=== PATIENT | female | born 2000 | race Caucasian/White ===

== ENCOUNTER 2019-02-20 23:28 | Emergency (ER) | payer OTHER ==
[2019-02-21] MEDS ORDERED: CEPHALEXIN 500 MG CAPSULE PO ONE (01:04)
[2019-02-21] MEDS ORDERED: DIPHENHYDRAMINE HCL 50 MG CAPSULE PO ONE (01:04)
--- NOTE | 2019-02-21 01:04 | ER Document Report ---
HPI - HPI Time Seen by Provider: 02/21/19 00:26 Pain Level: 1 Context: Patient is an otherwise healthy 18-year-old female who presents the emergency department with multiple insect bites on her lower extremities. Patient states that she noticed she had them about 2 days ago. She does have some erythema noted to her right lateral posterior thigh. She has not taken any Benadryl to help with the itchiness. Denies any past medical history. Does not take any medications. - ROS Notes: REVIEW OF SYSTEMS: CONSTITUTIONAL : Denies recent illness. Denies recent unintentional weight loss. Denies fever, chills, or sweats. EENT: Denies eye, ear, throat, or mouth pain, discharge, or symptoms. Denies nasal or sinus congestion. CARDIOVASCULAR: Denies chest pain. RESPIRATORY: Denies shortness of breath, cough, congestion, difficulty breathing, or wheezing. GASTROINTESTINAL: Denies nausea, vomiting, and diarrhea. Denies abdominal pain. Denies constipation. GENITOURINARY: Denies difficulty urinating, burning, blood in urine, urgency or frequency. MUSCULOSKELETAL: Denies neck and back pain. Denies joint pain or swelling. SKIN: See HPI HEMATOLOGIC : Denies easy bruising or bleeding. LYMPHATIC: Denies swollen, painful, enlarged glands. NEUROLOGICAL: Denies no numbness or tingling denies weakness. Denies headache. Denies altered mental status. Denies alteration in speech. PSYCHIATRIC: Denies stress, anxiety, alteration in sleep patterns, or depression. All other systems reviewed and negative. - REPRODUCTIVE Reproductive: DENIES: : Past Medical History - Social History Smoking Status: Never Smoker Family History: Reviewed & Not Pertinent Vertical Provider Document - CONSTITUTIONAL Notes: PHYSICAL EXAMINATION: GENERAL: Appears well, healthy, well-nourished, no acute distress. HEAD: Normocephalic, atraumatic. EYES: PERRL, conjunctiva normal, all extraocular movements intact, sclera nonicteric ENT: Moist mucous membranes. NECK: Supple, no noticeable swelling, redness, rash. Normal range of motion. LUNGS: Equal breath sounds bilaterally and clear to auscultation. No wheezes rales or rhonchi. CARDIOVASCULAR: S1-S2, regular rate, regular rhythm. Radial pulses 2+, normal. ABDOMEN: Normoactive bowel sounds. Soft, nontender, no guarding, no rebound tenderness, and no masses palpated. EXTREMITIES: Normal strength and range of motion, no pitting or edema. No cyano sis. NEUROLOGICAL: Moves all extremities upon command. Strength 5/5 in all extremities. PSYCH: Normal mood, normal affect. SKIN: Warm, dry. Edema and erythema noted to right posterior lateral thigh consistent with cellulitis. Multiple insect bites noted to bilateral lower legs. Normal skin turgor. - INFECTION CONTROL TRAVEL OUTSIDE OF THE [place] IN LAST 30 DAYS: No Course - Re-evaluation Re-evalutation: 02/21/19 Patient presents with symptoms most consistent with an acute cellulitis. Vitals within normal limits. Patient does not meet sepsis criteria is overall very well in appearance. Exam and history are not consistent with DVT. Patient will be started on coverage for both staph and strep. At this time will discharge with return precautions and follow-up recommendations. Verbal discharge instructions given a the bedside and opportunity for questions given. Medication warnings reviewed. Patient is in agreement with this plan and has verbalized understanding of return precautions and the need for primary care follow-up in the next 24-72 hours. Discharge - Discharge Clinical Impression: Cellulitis Qualifiers: Site of cellulitis: extremity Site of cellulitis of extremity: lower extremity Laterality: unspecified laterality Qualified Code(s): L03.119 - Cellulitis of unspecified part of limb Insect bites Qualifiers: Encounter type: initial encounter Site of insect bite: unspecified site Qualified Code(s): W57.XXXA - Bitten or stung by nonvenomous insect and other nonvenomous arthropods, initial encounter Condition: Stable Disposition: HOME, SELF-CARE Additional Instructions: The rash is likely due to infection of your skin from bug bites. You need to take the antibiotics as prescribed. Do not stop even if the rash goes away until you have completed all the antibiotics. The area of redness was traced out here in the emergency department with a marking pen. You need to return to emergency department if the redness spreads outside of this area by more than 2 cm in any direction. You should also return if you develop fevers with temperature greater than 101, persistent vomiting, worsening pain, or have any other symptoms that are concerning to you. Please take Benadryl 25-50 mg every 4-6 hours for itchiness. Follow-up with your primary care provider in regards to this visit. Prescriptions: Cephalexin Monohydrate [Keflex 500 mg Capsule] 500 mg PO Q6H 7 Days #28 capsule Referrals: MEGHAN GLASS MD [Primary Care Provider] - Follow up in 1 week
[2019-02-21 02:49] VITALS: BP 116/73
== END 2019-02-21 01:15 | disposition home or self-care (01) ==
LOC: ER 23:28
DX: L03.116 Cellulitis of left lower limb (principal); W57.XXXA Bitten or stung by nonvenomous insect and other nonvenomous arthropods, initial encounter
CPT/HCPCS: 99281

== ENCOUNTER 2019-06-29 21:14 | Emergency (ER) | payer OTHER ==
[2019-06-29] MEDS ORDERED: IBUPROFEN 600 MG TABLET PO ONE (21:44)
[2019-06-29] MEDS ORDERED: ACETAMINOPHEN 325 MG TABLET PO ONE (21:44)
--- NOTE | 2019-06-29 21:48 | ER Document Report ---
ED Medical Screen (RME) - General Chief Complaint: Hand Injury Stated Complaint: LEFT HAND INJURY Time Seen by Provider: 06/29/19 21:40 Primary Care Provider: MEGHAN GLASS MD [Primary Care Provider] - Follow up as needed Notes: Patient is a 18-year-old female who presents the emergency department with a chief complaint of left thumb pain. She went to go swat a ball on a metal desk and ended up hitting her hand. She states that she took some ibuprofen to help with the pain yesterday, but has not had any today. Exam: Ecchymosis noted to DIP joint of left thumb. Patient able to flex the thumb, but but states that it hurts. I have greeted and performed a rapid initial assessment of this patient. A comprehensive ED assessment and evaluation of the patient, analysis of test results and completion of medical decision making process will be conducted by an additional ED providers. TRAVEL OUTSIDE OF THE [place] IN LAST 30 DAYS: No - Related Data Allergies/Adverse Reactions: No Known Allergies Allergy (Verified 06/29/19 21:38) Past Medical History - Social History Chew tobacco use (# tins/day): No Frequency of alcohol use: Occasional Drug Abuse: None Renal/ Medical History: Denies: Hx Peritoneal Dialysis Past Surgical History: Reports: Hx Appendectomy - 2013 Physical Exam - Vital signs Vitals: Temp Pulse Resp BP Pulse Ox 98.5 F 77 18 124/73 100 06/29/19 21:40 06/29/19 21:40 06/29/19 21:40 06/29/19 21:40 06/29/19 21:40 Course - Vital Signs Vital signs: Temp Pulse Resp BP Pulse Ox 98.5 F 77 18 124/73 100 06/29/19 21:40 06/29/19 21:40 06/29/19 21:40 06/29/19 21:40 06/29/19 21:40 Doctor's Discharge - Discharge Referrals: MEGHAN GLASS MD [Primary Care Provider] - Follow up as needed
--- NOTE | 2019-06-29 22:21 | ER Document Report ---
HPI - HPI Time Seen by Provider: 06/29/19 21:40 Pain Level: 3 Context: Patient is a 18-year-old female who presents the emergency department with a chief complaint of left thumb pain. She went to go swat a ball on a metal desk and ended up hitting her hand. She states that she took some ibuprofen to help with the pain yesterday, but has not had any today. - RESPIRATORY Respiratory: DENIES: Trouble Breathing, Coughing - GASTROINTESTINAL Gastrointestinal: DENIES: Abdominal Pain - REPRODUCTIVE LMP: 05/2019 Reproductive: DENIES: : - MUSCULOSKELETAL Musculoskeletal: REPORTS: Extremity pain - left thumb, Swelling - left thumb - DERM Skin Color: Normal Skin Problems: Bruise - left thumb Past Medical History - Social History Smoking Status: Former Smoker Chew tobacco use (# tins/day): No Frequency of alcohol use: Occasional Drug Abuse: None Family History: Reviewed & Not Pertinent Patient has suicidal ideation: No Patient has homicidal ideation: No Renal/ Medical History: Denies: Hx Peritoneal Dialysis Past Surgical History: Reports: Hx Appendectomy - 2013 Vertical Provider Document - CONSTITUTIONAL Agree With Documented VS: Yes Exam Limitations: No Limitations General Appearance: No Apparent Distress - INFECTION CONTROL TRAVEL OUTSIDE OF THE [place] IN LAST 30 DAYS: No - HEENT HEENT: Atraumatic, Normocephalic, PERRLA - NECK Neck: Normal Inspection - RESPIRATORY Respiratory: No Respiratory Distress - CARDIOVASCULAR Pulses: Normal: Radial - MUSCULOSKELETAL/EXTREMETIES Musculoskeletal/Extremeties: Tender - left thumb, No Edema, Eccymosis - left thumb - NEURO Level of Consciousness: Awake, Alert, Appropriate Motor/Sensory: No Motor Deficit, No Sensory Deficit - DERM Integumentary: Warm, Dry Course - Re-evaluation Re-evalutation: 06/29/19 22:34 Patient's x-rays negative for any acute findings. Capillary refill less than 3 seconds. Radial pulse 2+. Patient is able to flex her thumb, but it hurts. I have advised patient to take ibuprofen and Tylenol for pain relief. She is in agreement with this plan. We will place the patient in a thumb spica only for comfort and protection of her finger. She is in agreement with this plan. Follow-up precautions were given. Verbal discharge instructions were given to the patient. They verbalized understanding. They are stable for discharge. - Vital Signs Vital signs: Temp Pulse Resp BP Pulse Ox 98.5 F 77 18 124/73 100 06/29/19 21:40 06/29/19 21:40 06/29/19 21:40 06/29/19 21:40 06/29/19 21:40 Procedures - Immobilization Left Thumb Pre-Proc Neuro Vasc Exam: Normal Immobilizer type: Thumb spica Performed by: PCT Post-Proc Neuro Vasc Exam: Normal, Unchanged from pre-exam Alignment checked and good: Yes Discharge - Discharge Clinical Impression: Contusion of left thumb Qualifiers: Encounter type: initial encounter Damage to nail status: without damage Qualified Code(s): S60.012A - Contusion of left thumb without damage to nail, initial encounter Condition: Stable Disposition: HOME, SELF-CARE Additional Instructions: You were seen today in the emergency department for left thumb pain. Your x-ray was normal and did not show any broken bones. You sustained a contusion to y our. You are being placed in a splint to help protect her thumb. You are also being placed in a sling to help you from hitting her hand and reinjuring your thumb. You can take your splint off when you shower, but please sit back on until it is healed. Please take ibuprofen 600 mg and acetaminophen 1000 mg every 6 hours for your pain. Please follow-up with your primary care provider as needed. Forms: Return to Work Referrals: MEGHAN GLASS MD [Primary Care Provider] - Follow up as needed
--- NOTE | 2019-06-29 22:33 | RADIOLOGY REPORT (SQ) ---
EXAM DESCRIPTION: XR HAND 3 OR MORE VIEWS COMPLETED DATE/TME: 06/29/2019 21:44 CLINICAL HISTORY: 18 years, Female, hand trauma COMPARISON: None. NUMBER OF VIEWS: 3 TECHNIQUE: 3 views left hand LIMITATIONS: None. FINDINGS: Negative for acute fracture or dislocation. Soft tissues are unremarkable IMPRESSION: Negative exam copyright 2010 [employer]- All Rights Reserved
[2019-06-29 23:00] VITALS: BP 122/71
== END 2019-06-29 23:00 | disposition home or self-care (01) ==
LOC: ER 21:14
DX: S60.012A Contusion of left thumb without damage to nail, initial encounter (principal); W22.09XA Striking against other stationary object, initial encounter

== ENCOUNTER 2020-09-06 18:20 | Emergency (ER) | payer OTHER ==
[2020-09-06 18:35] VITALS: BP 113/66
--- NOTE | 2020-09-06 18:48 | ER Document Report ---
ED Extremity Problem, Upper - General Chief Complaint: Shoulder Pain Stated Complaint: SHOULDER PAIN Time Seen by Provider: 09/06/20 18:38 Primary Care Provider: MEGHAN GLASS MD [Primary Care Provider] - Follow up as needed Mode of Arrival: Ambulatory Information source: Patient TRAVEL OUTSIDE OF THE [place] IN LAST 30 DAYS: No - HPI Patient complains to provider of: Pain, Right, Shoulder Notes: Patient with complaints of right shoulder pain. Patient states that 5 days ago her friend fell and she attempted to grab her and she pulled on her right arm. Since that time she has had pain in her right shoulder. Pain is constant, moderate, worse with movement, nothing seems to make it better. She denies fevers. She denies numbness, tingling, weakness. No redness or swelling. No chest pain or shortness of breath. No abdominal pain. No nausea, vomiting, diarrhea. No rash. No severe headache. No blurred or loss of vision. No other injuries, no other complaints. - Related Data Allergies/Adverse Reactions: No Known Allergies Allergy (Verified 06/29/19 21:38) Home Medications: Scarlett, Hydrochloroquine Past Medical History - Social History Smoking Status: Unknown if Ever Smoked Frequency of alcohol use: None Drug Abuse: None Family History: Reviewed & Not Pertinent Renal/ Medical History: Denies: Hx Peritoneal Dialysis Past Surgical History: Reports: Hx Appendectomy - 2013 Review of Systems - Review of Systems -: Yes All other systems reviewed and negative Physical Exam - Vital signs Vitals: Temp Pulse Resp BP Pulse Ox 99.0 F 74 16 113/66 100 09/06/20 18:33 09/06/20 18:33 09/06/20 18:33 09/06/20 18:33 09/06/20 18:33 - Notes Notes: GENERAL: alert, cooperative, nontoxic, no distress. HEAD: normocephalic, atraumatic EYES: conjunctiva pink without discharge, no external redness or swelling. EARS: no external swelling, no external redness NOSE: atraumatic, no external swelling MOUTH/THROAT: mucous membranes moist and pink NECK: soft, supple, full range of motion, no meningismus. CHEST: no distress, lungs clear and equal throughout. No wheezing, rales, rhonchi. CARDIAC: regular rate and rhythm, no murmur EXTREMITIES: full range of motion of all extremities. No redness, no swelling. Mild tenderness to palpation to the right trapezius area. No bone tenderness. Normal pulse and sensation distally. Equal push and pull of the upper extremity. Normal drop arm test. Compartments are soft. Elbow exam is normal. NEURO: alert and oriented 3, no focal deficits, full range of motion of all extremities. PYSCH: appropriate mood, affect. Patient is cooperative. SKIN: pink, warm, dry, no rash. Course - Re-evaluation Re-evalutation: 09/06/20 19:17 Patient resting comfortably at this time. I gone over results with the patient. Questions answered. Will discharge home. Patient with complaints of right shoulder pain. The patient states that about 5 days ago her friend was falling and she attempted to catch her and her friend pu lled her arm. Since that time she is had right shoulder pain. She has no bone tenderness on exam. There is no obvious deformities. She does have some tenderness along the trapezius muscle. She has normal strength, sensation and pulses. No signs of infection. Compartments are soft. Patient had an x-ray of the right shoulder which showed no acute abnormality. Patient will be discharged home with a prescription for Voltaren and Zanaflex. Instructions to follow-up with orthopedics if not better in the next 3 to 5 days, sooner for worsening pain, fever, numbness, tingling, weakness, any further concerns. The patient's emergency department workup and current diagnosis were explained to the patient and or family. Follow-up instructions were provided. Medications if prescribed were discussed. Instructions for when to return to the emergency department including specific worrisome symptoms were discussed with the patient and/or family. - Vital Signs Vital signs: Temp Pulse Resp BP Pulse Ox 99.0 F 74 16 113/66 100 09/06/20 18:33 09/06/20 18:33 09/06/20 18:33 09/06/20 18:33 09/06/20 18:33 - Laboratory Results Critical Laboratory Results Reviewed: No Critical Results - Radiology Results Critical Radiology Results Reviewed: No Critical Results Discharge - Discharge Clinical Impression: Right shoulder strain Qualifiers: Encounter type: initial encounter Qualified Code(s): S46.911A - Strain of unspecified muscle, fascia and tendon at shoulder and upper arm level, right arm, initial encounter Condition: Stable Disposition: HOME, SELF-CARE Instructions: Shoulder Injury ([facility]) Additional Instructions: Take medication as prescribed. Drink plenty fluids. Ice to the sore area. Follow-up with orthopedics if not better in the next 3 to 5 days, sooner for worsening pain, fever, numbness, tingling, weakness, any further concerns. Prescriptions: Diclofenac Sodium [Voltaren 50 Mg Tablet.Dr] 50 mg PO BID #20 tablet. Tizanidine HCl [Zanaflex 4 Mg Tablet] 4 mg PO BID PRN #10 tablet PRN Reason: Referrals: MEGHAN GLASS MD [Primary Care Provider] - Follow up as needed CHEPE CANALES DO [ACTIVE STAFF] - Follow up as needed
--- NOTE | 2020-09-06 19:04 | RADIOLOGY REPORT (SQ) ---
EXAM DESCRIPTION: SHOULDER RIGHT 2 OR MORE VIEWS IMAGES COMPLETED DATE/TIME: 09/06/2020 6:52 pm REASON FOR STUDY: right shoulder pain, pulled 5 days ago COMPARISON: None. NUMBER OF VIEWS: Three views. TECHNIQUE: Internal rotation, external rotation, and Y view images acquired of the right shoulder. LIMITATIONS: None. FINDINGS: MINERALIZATION: Normal. BONES: No acute fracture. No worrisome bone lesions. JOINTS: No dislocation. VISUALIZED LUNGS AND RIBS: No pneumothorax. No rib fracture. SOFT TISSUES: No radiopaque foreign body. OTHER: No other significant finding. IMPRESSION: NEGATIVE STUDY OF THE RIGHT SHOULDER. NO RADIOGRAPHIC EVIDENCE OF ACUTE INJURY. TECHNICAL DOCUMENTATION: JOB ID: [id number] 2010 [employer]- All Rights Reserved Reading location - IP/workstation name: [email or web address]
== END 2020-09-06 19:37 | disposition home or self-care (01) ==
LOC: ER 18:20
DX: S46.911A Strain of unspecified muscle, fascia and tendon at shoulder and upper arm level, right arm, initial encounter (principal); X50.0XXA Overexertion from strenuous movement or load, initial encounter
CPT/HCPCS: 99283